=== PATIENT | female | born 1990 | race Two or more races ===

== ENCOUNTER 2020-11-07 14:48 | Emergency (ER) | payer SELFPAY ==
[~2020-11-07] VITALS: Ht 154.9 cm; Wt 50.0 kg
--- NOTE | 2020-11-07 15:03 | NUR ---
THIS IS A 30 YEAR OLD FEMALE WHO C/O "I RECENTLY FOUND OUT I'M . THE LAST 2 WEEKS, MY VOMITING IS OUT OF CONTROL. I HAVE LOST 15 POUNDS. I JUST WANT TO MAKE SURE EVERYTHING IS OK"
--- NOTE | 2020-11-07 15:46 | NUR ---
RECEIVED REPORT FROM ENE NICHOLSON. PT RESTING ON GURBELIA. TAIWO. WARM BLANKET PROVIDED.
--- NOTE | 2020-11-07 15:52 | NUR ---
PT RESTING ON GURNEY. NADN. HARDEN.
[2020-11-07] MEDS ORDERED: SODIUM CHLORIDE 0.9% 1,000ML IVBOLUS ONE (16:00)
[2020-11-07] MEDS ORDERED: SODIUM CHLORIDE FLUSH 10ML SYR IVF ONE (16:00)
[2020-11-07 16:26] LABS: BASOPHILS % (AUTO) 0 % (0-1); EOSINOPHILS % (AUTO) 0 % (1-7); LYMPHOCYTES % (AUTO) 11 % (22-44); MEAN CORPUSCULAR HEMOGLOBIN 31.3 pg (27.0-34.8); MEAN PLATELET VOLUME 8.6 fL (7.4-10.4); MONOCYTES % (AUTO) 5 % (2-9); NEUTROPHILS % (AUTO) 84 % (42-75); PLATELET COUNT 224 x10^3/uL (130-400); RED BLOOD COUNT 4.26 x10^6/uL (3.82-5.3); RED CELL DISTRIBUTION WIDTH 12.3 % (9.6-15.2)
[2020-11-07 16:34] LABS: ALBUMIN 3.7 g/dL (3.4-5.0); ANION GAP 8 mmol/L (5-15); CALCIUM 9.4 mg/dL (8.5-10.1); CHLORIDE 107 mmol/L (98-107); CREATININE 0.44 mg/dL (0.55-1.02)
--- NOTE | 2020-11-07 17:18 | NUR ---
PT TAKEN TO US IN STABLE CONDITION. NADN. HARDNE.
[2020-11-07 17:46] LABS: MICROSCOPIC INDICATED
--- NOTE | 2020-11-07 18:03 | NUR ---
PT RESTING ON GURNEY. NADN. HARDEN.
[2020-11-07 18:07] VITALS: BP 137/77
== END 2020-11-07 18:09 | disposition home or self-care (01) ==
LOC: ED 16:00
DX: O21.1 Hyperemesis gravidarum with metabolic disturbance (principal); Z3A.09 9 weeks gestation of pregnancy
CPT/HCPCS: 36415; 76801; 80048; 81001; 82040; 84702; 85025; 99284; J7030

== ENCOUNTER 2020-11-30 12:41 | Emergency (ER) | payer OTHER ==
[~2020-11-30] VITALS: Ht 157.5 cm; Wt 50.3 kg
[2020-11-30 12:46] VITALS: BP 129/96
[2020-11-30 13:12] LABS: BASOPHILS % (AUTO) 1 % (0-1); EOSINOPHILS % (AUTO) 0 % (1-7); LYMPHOCYTES % (AUTO) 17 % (22-44); MEAN CORPUSCULAR HEMOGLOBIN 31.3 pg (27.0-34.8); MEAN CORPUSCULAR HGB CONC 34.8 g/dL (32.4-35.8); MEAN PLATELET VOLUME 8.1 fL (7.4-10.4); MONOCYTES % (AUTO) 5 % (2-9); NEUTROPHILS % (AUTO) 77 % (42-75); PLATELET COUNT 259 x10^3/uL (130-400); RED BLOOD COUNT 4.55 x10^6/uL (3.82-5.3); RED CELL DISTRIBUTION WIDTH 12.7 % (9.6-15.2)
[2020-11-30 13:25] LABS: ALANINE AMINOTRANSFERASE 15 U/L (12-78); ALBUMIN 3.7 g/dL (3.4-5.0); ANION GAP 5 mmol/L (5-15); CALCIUM 9.5 mg/dL (8.5-10.1); CHLORIDE 106 mmol/L (98-107); CREATININE 0.48 mg/dL (0.55-1.02)
[2020-11-30 13:41] LABS: MICROSCOPIC INDICATED
[2020-11-30 13:45] LABS: ALKALINE PHOSPHATASE 55 U/L (45-117); BILIRUBIN,TOTAL 0.4 mg/dL (0.2-1.0); TOTAL PROTEIN 8.3 g/dL (6.4-8.2)
--- NOTE | 2020-11-30 14:53 | NUR ---
POSITION CLERK: PT TO ROOM FROM LOBBY
== END 2020-11-30 15:57 | disposition home or self-care (01) ==
LOC: ED 15:37
DX: O36.4XX0 Maternal care for intrauterine death, not applicable or unspecified (principal); Z3A.12 12 weeks gestation of pregnancy
CPT/HCPCS: 36415; 76801; 80053; 81001; 84702; 85025; 99284

== ENCOUNTER 2020-12-10 15:44 | Emergency (ER) | payer OTHER ==
[~2020-12-10] VITALS: Ht 157.5 cm; Wt 50.0 kg
[2020-12-10 16:44] LABS: BASOPHILS % (AUTO) 0 % (0-1); EOSINOPHILS % (AUTO) 0 % (1-7); LYMPHOCYTES % (AUTO) 3 % (22-44); MEAN CORPUSCULAR HEMOGLOBIN 31.1 pg (27.0-34.8); MEAN PLATELET VOLUME 8.4 fL (7.4-10.4); MONOCYTES % (AUTO) 2 % (2-9); NEUTROPHILS % (AUTO) 95 % (42-75); PLATELET COUNT 236 x10^3/uL (130-400); RED BLOOD COUNT 4.72 x10^6/uL (3.82-5.3); RED CELL DISTRIBUTION WIDTH 12.5 % (9.6-15.2)
[2020-12-10 16:46] LABS: ALBUMIN 4.2 g/dL (3.4-5.0); ANION GAP 9 mmol/L (5-15); CALCIUM 9.7 mg/dL (8.5-10.1); CHLORIDE 105 mmol/L (98-107); CREATININE 0.65 mg/dL (0.55-1.02)
--- NOTE | 2020-12-10 18:03 | NUR ---
coal shooter note: Pt to room from lobby.
--- NOTE | 2020-12-10 18:11 | NUR ---
erp at bs for eval
[2020-12-10] MEDS ORDERED: ACETAMINOPHEN 500 MG TABLET ONE (18:27)
[2020-12-10] MEDS ORDERED: MORPHINE SULFATE 4 MG/ML, 1ML ONE (18:27)
[2020-12-10] MEDS ORDERED: ONDANSETRON 2MG/ML, 2ML ONE (18:27)
[2020-12-10] MEDS ORDERED: MORPHINE SULFATE 4 MG/ML, 1ML IVPush PRN (18:30)
--- NOTE | 2020-12-10 18:33 | NUR ---
PT MEDICATED PER EMAR. NADN/VSS. PT UPDATED ON POC. CALL LIGHT WITHIN REACH. FAMILY AT BS. PT DENIES ANY NEEDS AT THIS TIME. PT KNOWS WE NEED A URINE SAMPLE, STATES SHE CANNOT VOID AT THIS TIME
[2020-12-10 18:37] LABS: ALANINE AMINOTRANSFERASE 14 U/L (12-78); ALBUMIN 3.9 g/dL (3.4-5.0); BILIRUBIN, DIRECT 0.2 mg/dL (0.1-0.2)
[2020-12-10 18:40] LABS: ALKALINE PHOSPHATASE 60 U/L (45-117); BILIRUBIN,INDIRECT 0.6 mg/dL (0.0-2.0); BILIRUBIN,TOTAL 0.8 mg/dL (0.2-1.0); TOTAL PROTEIN 8.8 g/dL (6.4-8.2)
--- NOTE | 2020-12-10 18:55 | NUR ---
REPORT TO ENE RENTERIA
--- NOTE | 2020-12-10 18:56 | NUR ---
RECEIVED REPORT OF CANELO LUQUE. TRANSFER OF CARE
[2020-12-10] MEDS ORDERED: SODIUM CHLORIDE 0.9% 1,000ML IVBOLUS ONE (19:00)
[2020-12-10] MEDS ORDERED: ACETAMINOPHEN 500 MG TABLET PO ONE (19:00)
[2020-12-10] MEDS ORDERED: ONDANSETRON 2MG/ML, 2ML IVPush ONE (19:00)
[2020-12-10 19:28] LABS: MICROSCOPIC INDICATED
[2020-12-10] MEDS ORDERED: OMNIPAQUE 350 MG/ML, 100ML BOTTLE ONE (19:48)
--- NOTE | 2020-12-10 20:30 | NUR ---
Patient is resting comfortably in bed. Bed in lowest, rails engaged, call light on lap. Vital Signs within normal limits. WCTM. nadn. bf at bedside.
[2020-12-10 20:48] VITALS: BP 101/55
--- NOTE | 2020-12-10 21:40 | NUR ---
Patient/Caregiver given discharge instructions and they have confirmed that they understand the instructions. Patient ambulatory with steady gait. NAD, all questions answered appropriately, denies additional needs at this time. No personal belongings left in room after discharge.
== END 2020-12-10 22:12 | disposition home or self-care (01) ==
LOC: ED 16:00
DX: N98.9 Complication associated with artificial fertilization, unspecified (principal); R10.84 Generalized abdominal pain; R50.9 Fever, unspecified; M79.10 Myalgia, unspecified site; Z20.822 Contact with and (suspected) exposure to COVID-19
CPT/HCPCS: 36415; 74177; 76830; 80048; 80076; 81001; 82040; 83690; 84145; 84702; 84703; 85025; 96361; 96374; 96375; 99285; J2270; J2405; J7030; Q9967; U0003; U0005